=== PATIENT | female | born 1980 | race Caucasian/White ===

== ENCOUNTER 2019-08-24 10:35 | Emergency (ER) | payer SELFPAY ==
[2019-08-24 10:43] VITALS: BP 128/81; PULSE 112; RESP 16; TEMP 36.3; O2SAT 99
--- NOTE | 2019-08-24 10:43 | ED.GENADULT ---
HPI - General Adult General Chief complaint: Ear Stated complaint: Pos ear infection Time Seen by Provider: 08/24/19 10:48 Source: patient and RN notes reviewed Mode of arrival: ambulatory Limitations: no limitations History of Present Illness HPI narrative: This is a 38 years old female presents to the office for an evaluation of possible ears infection. Patient reports intermittent right ear pain for the past few months and worse about 3 weeks ago. Symptoms include right ear pain, with slight drainage felt warm with intermittent sharp shooting pain. Denies any sinus congestion, sore throat, fever, or vomiting. She does not have an ENT. She tried [id number] eardrops with no relief. Related Data Allergies Allergy/AdvReac Type Severity Reaction Status Date / Time No Known Allergies Allergy Unknown Verified 04/22/19 14:59 No Known Allergies Allergy Uncoded 04/22/19 14:59 Review of Systems Review of Systems: Narrative: CONSTITUTIONAL: Denies fever ENT: Denies rhinorrhea, congestion, sore throat. Denies decrease hearing or rininging CARDIOVASCULAR: Denies chest pain RESPIRATORY: Denies dyspnea, wheezing, cough GASTROINTESTINAL: Denies abdominal pain,vomiting, diarrhea. SKIN: Denies rash MUSCULOSKELETAL: Denies acute back pain NEUROLOGIC: Denies lightheaded PMFSH Comments At time of signature, I agree with nursing past medical, surgical, social and family history. There is no relevant family history pertinent to the presenting complaint. Exam Narrative: Exam Narrative: GENERAL: This is a well-nourished, well-developed patient, in no apparent distress. EYES: Sclera clear/white. Vision is grossly intact. EARS: External ears normal, auditory canals clear and without drainage, TMs normal without perforation with fluid level. Hearing grossly intact. NOSE: External nose normal with no obvious nasal discharge, nares without redness, no rhinorrhea. THROAT: Mucous membranes moist, posterior pharynx clear. NECK: Neck supple, non-tender without lymphadenopathy, masses or thyromegaly. CARDIOVASCULAR: Regular rate and rhythm without murmurs, gallops, or rubs. RESPIRATORY: Clear to auscultation. Breath sounds equal bilaterally. No wheezes, rales, or rhonchi. GASTROINTESTINAL: Abdomen soft, non-tender, nondistended. Bowel sounds are active. No hepato-splenomegaly, or palpable masses. No guarding. SKIN: warm, intact with no suspicious lesions or rash, good texture and turgor. NEURO: awake, alert, and oriented to person, place and time. There were no obvious focal neurologic abnormalities. Steady gait [place] Coma Scale Eye Opening: Spontaneous 4 [place] Coma Scale Motor: Obeys Commands 6 Artemio Coma Scale Verbal: Oriented 5 Medical Decision Making MDM Narrative Medical decision making narrative: Discharge instructions reviewed with patient, as well as provided in writing per nursing staff. The instructions also include specific and strict return/GO TO THE ER as well as f/u information. All questions have been answered, and the patient deny any further questions with discharge and discharge plan. Differential Diagnosis Differential Diagnosis: Allergic Rhinitis, Sinusitis, otitis media, viral URI Critical Care Time Critical Care Time Critical Care Time: No Discharge Plan Discharge Clinical Impression: Acute serous otitis media Patient Disposition: Home, Self-Care Condition: Stable Instructions: Serous Otitis Media (ED) Additional Instructions: Ears does not sign of infection; however there is fluid level in both TM Recommend antihistamine such as Benadryl or Zyrtec Alternate Tylenol and ibuprofen as needed for pain Make sure to take steroid with food Follow-up with an ENT if condition is not improving with prescribed medication Prescriptions: New prednisone 20 mg tablet 40 mg PO DAILY 5 Days Qty: 10 RF: 0 Follow-up/Referrals: UNKNOWN,DOCTOR [Primary Care Provider] - Time of Disposition
[2019-08-24 10:59] VITALS: PULSE 100
== END 2019-08-24 10:58 | disposition home or self-care (01) ==
PROVIDERS: Emergency Provider Nurse Practitioner
DX: H65.03 Acute serous otitis media, bilateral (principal)
CPT/HCPCS: 99213; G0463

== ENCOUNTER 2020-09-11 07:39 | Emergency (ER) | payer BC, SELFPAY ==
--- NOTE | ~2020-09-11 | XR_ITS ---
EXAMINATION: XR chest 1V portable DATE: 09/11/2020 08:15 INDICATION: Shortness of breath. Chest pain. TECHNIQUE: A single frontal view of the chest was obtained. COMPARISON: Chest 2 views 03/14/2016, CT abdomen and pelvis 12/20/2011 FINDINGS: The chest demonstrates clear lungs without pneumonia, pleural effusion, or pneumothorax. Th e heart size is normal. IMPRESSION: 1. No acute cardiopulmonary disease. Reviewed, dictated and finalized at location A.
--- NOTE | 2020-09-11 07:43 | ECG_ITS ---
Measurements Intervals [place] Rate: 104 P: 62 WA: 129 QRS: 57 QRSD: 85 T: 55 QT: 354 QTc: 466 Interpretive Statements SINUS TACHYCARDIA ABNORMAL ECG Electronically Signed On 09-11-2020 9:09:02 CDT by Harjit Akhtar D.O.
[2020-09-11 07:44] VITALS: PULSE 104
[2020-09-11 07:46] VITALS: BP 135/89; PULSE 104; RESP 18; TEMP 36.9; O2SAT 100
[2020-09-11 07:58] VITALS: O2SAT 99
[2020-09-11 08:32] LABS: Basophils Absolute Auto 0.1 K/mm3 (0.0-0.1); Eosinophils Absolute Auto 0.1 K/mm3 (0-0.3); Eosinophils Percent Auto 2.1 % (0-4.4); Hemoglobin 15.7 g/dL (12.0-15.0); Immature Granulocyte Absolute 0.01 K/mm3 (0.00-0.031); Immature Granulocyte Percent A 0.2 % (0-0.5); Lymphocytes Absolute Auto 1.31 K/mm3 (0.9-3.2); Lymphocytes Percent Auto 21.6 % (18.3-44.2); Mean Corpuscular HGB Conc 32.7 g/dl (32-36); Mean Corpuscular Hemoglobin 31.8 pg (26-34); Mean Corpuscular Volume 97.2 fl (80-100); Mean Platelet Volume 9.2 fl (7.4-10.4); Monocytes Absolute Auto 0.5 K/mm3 (0.1-0.6); Monocytes Percent Auto 7.7 % (2.6-8.5); Neutrophils Absolute Auto 4.1 K/mm3 (1.3-6.7); Neutrophils Percent Auto 67.4 % (45.5-73.1); Platelet Count Result 183 k/mm3 (150-375); Red Blood Count 4.94 M/mm3 (4.2-5.4); Red Cell Distribution Width 14.1 % (11.5-14.5); White Blood Count 6.1 K/mm3 (4.5-10.0)
[2020-09-11 08:39] VITALS: BP 114/86; PULSE 93; RESP 15; O2SAT 100
[2020-09-11 08:44] LABS: Alanine Aminotransferase 14 U/L (4-35); Albumin Level 4.3 g/dL (3.5-5.1); Alkaline Phosphatase 100 U/L (38-126); Anion Gap 2 mmol/L (8-16); Aspartate Amino Transferase 20 U/L (14-36); Bilirubin,Total 2.1 mg/dL (0.2-1.3); Blood Urea Nitrogen 7 mg/dL (7-17); Calcium 8.9 mg/dL (8.4-10.2); Carbon Dioxide 33 mmol/L (22-30); Chloride 107 mmol/L (98-107); Estimated CRCL calculation 64 ml/min; Estimated Glomerular Filt Rate > 60; Glucose 86 mg/dL (65-105); Potassium 3.6 mmol/L (3.4-5.0); Sodium 142 mmol/L (137-145)
[2020-09-11 08:45] LABS: D Dimer 0.27 ug/mL (<0.48)
[2020-09-11 08:55] LABS: Troponin I < 0.012 ng/mL (0.000-0.034)
[2020-09-11] MEDS: KETOROLAC 30 MG/ML VIAL (*BKC) IV PUSH (08:55)
--- NOTE | 2020-09-11 10:42 | ED.SOB ---
HPI - SOB/Dyspnea General Chief Complaint: Shortness of Breath/Dyspnea Stated Complaint: CP/SOB Time Seen by Provider: 09/11/20 07:47 History of Present Illness HPI Narrative: Patient is a 40-year-old female who presents ER with cold symptoms. Reports over the last couple days she has been having sinus congestion with sore throat and some cough. No known sick contacts. No fevers or chills or sweats. She has been noticing some mild to with breathing. She is a smoker and thinks she has some underlying lung disease. She does report some mild left-sided chest pain that is aching and nonradiating. Worse with movement and deep breaths. Has not tried any medication for it. Related Data Allergies Allergy/AdvReac Type Severity Reaction Status Date / Time No Known Allergies Allergy Unknown Verified 04/22/19 14:59 No Known Allergies Allergy Uncoded 04/22/19 14:59 Review of Systems Review of Systems: All systems reviewed & are unremarkable except as noted in HPI and below Constitutional: Constitutional: Denies chills, Denies fever(s) and Denies weakness ENT: Reports nasal congestion and Reports sore throat Cardiovascular: Cardiovascular: Reports chest pain, Denies rapid heart rate and Denies radiating jaw, neck or arm pain Respiratory: Respiratory: Denies chest congestion, Reports cough, Reports dyspnea and Denies wheezing Gastrointestinal: Gastrointestinal: Denies abdominal pain, Denies nausea and Denies vomiting PMFSH Past Medical History Medical History (Updated 09/11/20 @ 12:06 by Danny Quesada MD) Healthy female adult Surgical History Surgical History (Updated 09/11/20 @ 12:01 by Danny Quesada MD) History of appendectomy History of History of inguinal hernia repair History of tonsillectomy Social History Social History (Updated 09/11/20 @ 12:01 by Danny Quesada MD) Smoking status: Current every day smoker Gender identity (if verbalized by the patient): Female Exam Narrative: Exam Narrative: GENERAL: Well-appearing, well-nourished, and in no acute distress. HEAD: Normocephalic, atraumatic. CHEST: Apical wheezing. No respiratory distress. HEART: Regular rate and rhythm. Normal peripheral pulses. ABDOMEN: Soft, nontender, nondistended, normal active bowel sounds. EXTREMITIES: Normal range of motion. No edema. SKIN: Warm, dry, no rash. NEURO: No focal deficits. Alert and oriented x3. PSYCH: Normal mood and affect. Course Course Emergency Course: Patient informed of results. Pain resolved with Toradol. Will give an inhaler for home for the apical wheezing. Will swab for Covid and patient has not been informed of isolation precautions. Reports he understands that she was actually exposed the last week and a half to Covid by her children who are in different Covid positive house. Vital Signs Vital signs: Vital Signs Pulse Rate 104 H 09/11/20 07:44 Temperature 98.4 F 09/11/20 07:46 Pulse Rate 97 09/11/20 11:10 Respiratory Rate 17 09/11/20 11:10 Blood Pressure 103/81 09/11/20 11:10 Pulse Oximetry 98 09/11/20 11:10 MDM - SOB/Dyspnea Lab Data Result diagrams: 09/11/20 08:24 09/11/20 08:24 Labs: Lab Results 09/11/20 09/11/20 09/11/20 Range/Units 08:24 08:24 08:24 WBC 6.1 (4.5-10.0) K/mm3 RBC 4.94 (4.2-5.4) M/mm3 Hgb 15.7 H (12.0-15.0) g/dL Hct 48.0 H (37.0-47.0) % MCV 97.2 (80-100) fl MCH 31.8 (26-34) pg MCHC 32.7 (32-36) g/dl RDW 14.1 (11.5-14.5) % Plt Count 183 (150-375) k/mm3 MPV 9.2 (7.4-10.4) fl Immature Gran % (Auto) 0.2 (0-0.5) % Neut % (Auto) 67.4 (45.5-73.1) % Lymph % (Auto) 21.6 (18.3-44.2) % [place] % (Auto) 7.7 (2.6-8.5) % Eos % (Auto) 2.1 (0-4.4) % Baso % (Auto) 1.0 (0.2-1.2) % Lymph # (Auto) 1.31 (0.9-3.2) K/mm3 [place] # (Auto) 0.5 (0.1-0.6) K/mm3 Eos # (Auto) 0.1 (0-0.3) K/mm3 Baso # (Auto) 0.1
[2020-09-11 11:10] VITALS: BP 103/81; PULSE 97; RESP 17; O2SAT 98
--- NOTE | 2020-09-11 11:10 | PC.NURSE ---
report given to Zenaida RN at this time
[2020-09-12 00:25] LABS: SARS-CoV-2 RNA PCR Negative
== END 2020-09-11 12:14 | disposition home or self-care (01) ==
PROVIDERS: Emergency Provider Emergency Medicine
DX: B34.9 Viral infection, unspecified (principal); Z20.822 Contact with and (suspected) exposure to COVID-19; F17.200 Nicotine dependence, unspecified, uncomplicated; R00.0 Tachycardia, unspecified
CPT/HCPCS: 36415; 71045; 80053; 81025; 84484; 85025; 85380; 93005; 96374; 99284; C9803; J1885; U0003; U0005

== ENCOUNTER 2021-02-13 18:13 | Emergency (ER) | payer BC, SELFPAY ==
[2021-02-13 18:23] VITALS: BP 134/86; PULSE 93; RESP 16; TEMP 36.3; O2SAT 100
[2021-02-13 18:38] VITALS: BP 134/86; PULSE 93; RESP 16; TEMP 36.3; O2SAT 100
--- NOTE | 2021-02-13 18:50 | ED.GENADULT ---
HPI - General Adult General Chief complaint: Dental/Oral Stated complaint: tooth pain Time Seen by Provider: 02/13/21 18:50 Source: patient and RN notes reviewed Mode of arrival: ambulatory Limitations: no limitations History of Present Illness HPI narrative: 40-year-old female presents with complaints of dental pain for the past 1.5 weeks. Crystal reports increasing right upper dental pain over the past 2-3 days. Old antibiotics (someone else), Ibuprofen, and Tylenol last taken on 02/12/21 without relief. Denies any drainage. No fever. No jaw swelling. No neck swelling. No limitation with speaking or swallowing. Has a history of dental caries. Patient reports have not seen a dentist recently. No dental trauma. No oral lesions. Exacerbating factors consist of chewing on the RT side, eating and drinking cold items. No relieving factors. No dentures or bridges. Tolerating liquids well. LMP 3 weeks ago. Remains active. The patient reports she has not been diagnosed with COVID-19. The patient reports she is not waiting for the results of a COVID-19 lab test. The patient reports she does not have weakness, fatigue, or myalgia. The patient reports he does not have a new or worsening cough or shortness of breath. The patient reports he does not have any rhinorrhea, congestion, loss of taste or smell, sore throat, and diarrhea. Denies recent traveling. Denies concerns for COVID-19 or exposures. At this time, the patient is not suspected of having COVID-19. Some parts of this dictation were generated by voice recognition software and may contain typographical and/or grammatical inaccuracies. Related Data Allergies Allergy/AdvReac Type Severity Reaction Status Date / Time No Known Allergies Allergy Unknown Verified 02/13/21 18:16 Review of Systems Review of Systems: CONSTITUTIONAL: Denies fever, chills, sweats. EYES: Denies visual changes, redness, discharge. ENT: Denies rhinorrhea, congestion, sore throat, otalgia. Complains of RT upper dental pain. CARDIOVASCULAR: Denies chest pain, palpitations, edema. RESPIRATORY: Denies dyspnea, wheezing, cough. GASTROINTESTINAL: Denies abdominal pain, nausea, vomiting, diarrhea. SKIN: Denies rash or itching. MUSCULOSKELETAL: Denies acute back pain, joint pain, or myalgia. NEUROLOGIC: Denies numbness or focal weakness. PSYCHIATRIC: Denies anxiety or depression. All systems reviewed & are unremarkable except as noted in HPI and below. [facility] Past Medical History Medical History Healthy female adult Smoker Surgical History Surgical History (Updated 02/13/21 @ 19:09 by MADY Marcelo) History of appendectomy History of X3 History of inguinal hernia repair History of tonsillectomy Family History Family History (Updated 02/13/21 @ 19:09 by MADY Marcelo) Father Unknown family medical history Mother Hypertension Social History Social History (Updated 02/13/21 @ 19:10 by MADY Marcelo) Smoking packs per day: 0.5 Smoking cigarettes per day: 10.0 Years smoked: 26 Smoking pack-years: 13.00 Smoking status: Current every day smoker Tobacco type: cigarettes Second hand tobacco smoke exposure: Yes (mother) Alcohol intake: current Substance use: former Substance use type: former substance user Living arrangements: with family Occupation/Education: unemployed Gender identity (if verbalized by the patient): Female Sexual Orientation (if Verbalized by the Patient): Straight or Heterosexual Comments At time of signature, agree with the nurse past medical, surgical, social, and family history. There is no relevant family history pertinent to the presenting complaint. Exam Narrative: GENERAL: This is a well-nourished, well-developed patient, in no apparent distress. Talks in full sentences and ambulates with steady gait without dyspnea. HEAD: Normocephalic, atraumatic. EYES: PERRL. Sclera c
== END 2021-02-13 19:15 | disposition home or self-care (01) ==
PROVIDERS: Emergency Provider Nurse Practitioner Family
DX: K02.9 Dental caries, unspecified (principal); K04.7 Periapical abscess without sinus; K08.89 Other specified disorders of teeth and supporting structures; F17.210 Nicotine dependence, cigarettes, uncomplicated
CPT/HCPCS: 99213; G0463